=== PATIENT | female | born 1970 | race Two or more races ===

== ENCOUNTER 2017-11-07 10:04 | Emergency (ER) | payer OTHER ==
[~2017-11-07] VITALS: Ht 157.5 cm; Wt 73.5 kg
[2017-11-07] MEDS ORDERED: COZAAR50 MG (10:23)
[2017-11-07] MEDS ORDERED: SYNTHROID112 MCG (10:24)
[2017-11-07] MEDS ORDERED: ATENOLOL25 MG (10:24)
== END 2017-11-07 22:17 | disposition home or self-care (01) ==
LOC: ER 10:04
DX: S61.211A Laceration without foreign body of left index finger without damage to nail, initial encounter (principal); W45.8XXA Other foreign body or object entering through skin, initial encounter; Y93.89 Activity, other specified; Y92.89 Other specified places as the place of occurrence of the external cause; Y99.8 Other external cause status

== ENCOUNTER 2017-11-15 12:03 | Emergency (ER) | payer OTHER ==
[~2017-11-15] VITALS: Ht 157.5 cm; Wt 77.1 kg
[~2017-11-15 12:03] MED LIST: ATENOLOL25 MG; COZAAR50 MG; SYNTHROID112 MCG
== END 2017-11-15 13:07 | disposition home or self-care (01) ==
LOC: ER 12:03
DX: Z48.02 Encounter for removal of sutures (principal)

== ENCOUNTER 2021-10-30 06:53 | Day surgery (SDC) | payer OTHER ==
[~2021-10-30] VITALS: Ht 160 cm; Wt 76.7 kg
[~2021-10-30 06:53] MED LIST changes: +HYDROCHLOROTHIA25 MG PO; +LIPITOR20 MG PO; +METFORMIN HCL850 M1 PO
== END 2021-10-30 14:00 | disposition home or self-care (01) ==
LOC: CIR.AMB 06:53
PROVIDERS: ATTEND Obstetrics & Gynecology
DX: N92.1 Excessive and frequent menstruation with irregular cycle (principal); Z20.822 Contact with and (suspected) exposure to COVID-19; I10 Essential (primary) hypertension; E03.9 Hypothyroidism, unspecified

== ENCOUNTER 2023-01-07 05:24 | Day surgery (SDC) | payer OTHER ==
[~2023-01-07] VITALS: Ht 160 cm; Wt 70.3 kg
[~2023-01-07 05:24] MED LIST changes: +OZEMPIC0.25 MG/02; -SYNTHROID112 MCG; +SYNTHROID112 MCG PO
== END 2023-01-07 11:20 | disposition home or self-care (01) ==
LOC: CIR.AMB 05:24
PROVIDERS: ATTEND Obstetrics & Gynecology
DX: N84.0 Polyp of corpus uteri (principal); N92.6 Irregular menstruation, unspecified; I10 Essential (primary) hypertension; Z20.822 Contact with and (suspected) exposure to COVID-19; E03.9 Hypothyroidism, unspecified

== ENCOUNTER 2023-05-17 11:15 | Inpatient (IN) | payer OTHER ==
[~2023-05-17] VITALS: Ht 160 cm; Wt 69.9 kg
[2023-05-20 20:48] LABS: HEMATOCRIT 37.7 % (36.0-45.00); HEMOGLOBIN 12.7 g/dL (12.0-15.00); MEAN CELL VOLUME 91.2 fL (80.00-100.00); MEAN CORPUSCULAR HEMOGLOBIN 30.8 pg (27.00-32.0); MEAN CORPUSCULAR HGB CONC 33.7 g/dl (32.0-36.0); PLATELET COUNT 256 K/uL (150-450); RED BLOOD COUNT 4.13 M/uL (4.00-6.00); RED CELL DISTRIBUTION WIDTH 14.2 % (11.5-14.5)
[2023-05-21] MEDS ORDERED: DICLOFENAC POTA50 MG PO (08:59)
[2023-05-21] MEDS ORDERED: ACETAMINOPHEN-1 EAC2 PO (09:01)
== END 2023-05-21 11:17 | disposition home or self-care (01) | DRG 742 ==
LOC: SURH 05-20 07:00 → O/R 05-20 07:18 → SURH 05-20 11:15 → OB/GYN 05-20 17:26
PROVIDERS: Surgery; ADMIT Obstetrics & Gynecology; ATTEND Obstetrics & Gynecology
PROC: 0UT20ZZ Resection of Bilateral Ovaries, Open Approach (ICD-10-PCS; 2023-05-20)
PROC: 0USG7ZZ Reposition Vagina, Via Natural or Artificial Opening (ICD-10-PCS; 2023-05-20)
PROC: 0DQK0ZZ Repair Ascending Colon, Open Approach (ICD-10-PCS; 2023-05-20)
PROC: 0DJD4ZZ Inspection of Lower Intestinal Tract, Percutaneous Endoscopic Approach (ICD-10-PCS; 2023-05-20)
PROC: 0UT90ZZ Resection of Uterus, Open Approach (ICD-10-PCS; principal; 2023-05-20 07:00)
PROC: 0UT70ZZ Resection of Bilateral Fallopian Tubes, Open Approach (ICD-10-PCS; 2023-05-20 07:00)
DX: D25.1 Intramural leiomyoma of uterus (principal); K91.72 Accidental puncture and laceration of a digestive system organ or structure during other procedure; D25.2 Subserosal leiomyoma of uterus; K66.0 Peritoneal adhesions (postprocedural) (postinfection); N80.03 Adenomyosis of the uterus; Z20.822 Contact with and (suspected) exposure to COVID-19

== ENCOUNTER 2023-11-25 09:52 | Outpatient (CLI) | payer OTHER ==
[~2023-11-25 09:52] MED LIST changes: +ACETAMINOPHEN-1 EAC2 PO; +DICLOFENAC POTA50 MG PO
== END 2023-11-25 09:55 | disposition home or self-care (01) ==
LOC: SONOGRAMA 09:52
PROVIDERS: ATTEND Pathology Anatomic Pathology & Clinical Pathology
DX: D34 Benign neoplasm of thyroid gland (principal); E07.89 Other specified disorders of thyroid; E04.1 Nontoxic single thyroid nodule

== ENCOUNTER 2024-04-11 08:19 | Emergency (ER) | payer OTHER ==
[~2024-04-11] VITALS: Ht 157.5 cm; Wt 64.0 kg
[2024-04-11] MEDS ORDERED: KETO10TA2 PO (08:34)
[2024-04-11] MEDS ORDERED: MOUNJARO10 MG/0.5 SQ (08:34)
[2024-04-11] MEDS ORDERED: NORFLEX100MG PO (08:35)
[2024-04-11] MEDS ORDERED: KETOROLAC TROMETHAMINE 60 MG VIAL IM STA (08:51)
[2024-04-11] MEDS ORDERED: ORPHENADRINE CITRATE 30 MG/ML AMPUL IM STA (08:52)
== END 2024-04-11 12:36 | disposition home or self-care (01) ==
LOC: ER 08:21
DX: M51.26 Other intervertebral disc displacement, lumbar region (principal); I10 Essential (primary) hypertension; E03.9 Hypothyroidism, unspecified; E11.9 Type 2 diabetes mellitus without complications; Z79.84 Long term (current) use of oral hypoglycemic drugs

== ENCOUNTER 2025-04-03 10:12 | Emergency (ER) | payer OTHER ==
[~2025-04-03] VITALS: Ht 157.5 cm; Wt 62.6 kg
[~2025-04-03 10:12] MED LIST changes: +KETO10TA2 PO; +MOUNJARO10 MG/0.5 SQ; +NORFLEX100MG PO
[2025-04-03] MEDS ORDERED: CYCLOBENZAPRINE HCL 5 MG TABLET PO ONE (11:45)
[2025-04-03] MEDS ORDERED: KETOROLAC TROMETHAMINE 30 MG VIAL IM ONE (11:45)
[2025-04-03] MEDS ORDERED: KETOROLAC TROMETHAMINE 30 MG VIAL ONE (11:53)
== END 2025-04-03 14:41 | disposition home or self-care (01) ==
LOC: ER 10:13
DX: M54.50 Low back pain, unspecified (principal)